=== PATIENT | female | born 1970 | race Caucasian/White ===

== ENCOUNTER 2016-07-13 11:47 | Emergency (ER) | payer OTHER ==
[2016-07-13 12:01] VITALS: BP 111/73; PULSE 44; RESP 18; TEMP 97.9; O2SAT 95
--- NOTE | 2016-07-13 12:58 | UCPHY ---
H & P Time Seen by Provider: 07/13/16 12:48 Patient Type: Established HPI/ROS: This patient was tripped while jogging with her friend who has a dog by the dog with an injury to the left foot with pain at the dorsum of the midfoot since that time, mild swelling. The pain is moderate baseline becomes slightly worse with weight-bearing. No other exacerbating factors. No other injuries from the fall. ROS: No numbness tingling or other complaints 5 point ROS is otherwise negative. Past Medical/Surgical History: Otherwise healthy Smoking Status: Never smoked Physical Exam: Physical Exam Vital signs are normal. General: No acute distress HEENT: Atraumatic. Eyes: Pupils equal and react to light. Extraocular motions are intact. Lungs: No respiratory distress. Cardiac: Brisk capillary refill is intact throughout. Pulses are 2+ and symmetric in the affected extremity. Skin: No rash or pallor. Extremities: Atraumatic normal except for left foot Left foot: Patient has mild dorsal midfoot tenderness and swelling with no ecchymosis. No 5th metatarsal tenderness. No ankle swelling or tenderness but no Achilles tenderness. Neuro: Alert with no sensorimotor deficits in the affected foot. Initial differential diagnosis: Foot sprain versus fracture Constitutional: Initial Vital Signs Temperature (C) 36.6 C 07/13/16 11:56 Heart Rate 44 L 07/13/16 11:56 Respiratory Rate 18 07/13/16 11:56 Blood Pressure 111/73 07/13/16 11:56 O2 Sat (%) 95 07/13/16 11:56 O2 Delivery Mode Room Air Allergies/Adverse Reactions: Penicillins Allergy (Verified 07/13/16 11:56) Home Medications: Medication Instructions Recorded NK [No Known Home Meds] 07/13/16 MDM/Departure - MDM Diagnostics: Imaging Impressions Foot X-Ray 07/13/16 12:02 Impression: Negative. No acute fracture. I reviewed the foot [id number] for fracture. This was read primarily by the radiologist. Imaging Results: Imaging Impressions Foot X-Ray 07/13/16 12:02 Impression: Negative. No acute fracture. ED Course/Re-evaluation: Patient is placed in a postop shoe I counseled her regarding foot sprain. - Depart Disposition: Home, Routine, Self-Care Clinical Impression: Sprain of foot, left Qualifiers: Encounter type: initial encounter Qualified Code(s): S93.602A - Unspecified sprain of left foot, initial encounter Condition: Good Instructions: Foot Sprain (ED), Crutch Instructions (ED) Additional Instructions: Diagnosis: Foot sprain Plan: Ice 20 minutes at a time 3 times a day Elevate the foot when able Ibuprofen for discomfort and Tylenol in addition as needed Wear the postop shoe water about Cane or crutches if needed Follow up with the web specialist if not improving with treatment plan. Referrals: NONE *PRIMARY CARE P,. [Primary Care Provider] - As per Instructions Chaparro Ortiz DPM [Doctor of Podiatric Medicine] - As per Instructions - PQRS PQRS Measurement: NA
== END 2016-07-13 13:15 | disposition home or self-care (01) ==
LOC: CED 11:47
DX: S93.602A Unspecified sprain of left foot, initial encounter (principal); Y93.02 Activity, running; W18.40XA Slipping, tripping and stumbling without falling, unspecified, initial encounter
CPT/HCPCS: 73630-PO; G0463-PO